=== PATIENT | male | born 1955 | race Caucasian/White ===

== ENCOUNTER 2025-06-07 10:27 | Inpatient (IN) ==
--- NOTE | 2025-04-28 10:49 | PAT Medication Instructions ---
Medication Instructions Date of Service April 28, 2025 Home Medications Medication Instructions Recorded doxycycline hyclate 50 mg capsule 50 mg PO .COMPLEX 90 days #45 caps 07/12/24 atorvastatin 20 mg tablet See Rx Instructions .Route 10/07/24 .COMPLEX #90 tabs doxepin 10 mg capsule See Rx Instructions .Route 12/19/24 .COMPLEX #90 caps losartan 100 mg tablet See Rx Instructions .Route 12/27/24 .COMPLEX #100 tabs cholecalciferol (vitamin D3) 50 mcg (2,000 unit) capsule 50 mcg PO QAM melatonin 5 mg tablet 3 - 10 mg PO HS PRN Sleep omega-3 fatty acids 1,000 mg capsule 1,000 mg PO QAM cyanocobalamin (vitamin B-12) 1,000 mcg tablet (Vitamin B-12) 2,000 mcg PO QAM milk thistle dandilion See Rx Instructions .Route .COMPLEX resveratrol 100 mg capsule 200 mg PO QAM vitamin B complex 1 tab PO DAILY doxycycline hyclate 50 mg capsule 50 mg PO .COMPLEX garlic 1,000 mg capsule 1,000 mg PO DAILY atorvastatin 20 mg tablet See Rx Instructions .Route .COMPLEX tumeric 100 mg PO QAM doxepin 10 mg capsule See Rx Instructions .Route .COMPLEX losartan 100 mg tablet See Rx Instructions .Route .COMPLEX [place] See Rx Instructions .Route .COMPLEX coenzyme Q10 200 mg capsule (Co Q-10) 200 mg PO QAM green tea extract 500 mg capsule 500 mg PO QAM potassium citrate 15 mEq (1,620 mg) tablet,extended release 15 meq PO QAM Continue as directed doxycycline hyclate 50 mg capsule 50 mg PO .COMPLEX STOP taking 2 weeks before surgery (or as soon as possible if surgery is within 2 weeks) omega-3 fatty acids 1,000 mg capsule 1,000 mg PO QAM milk thistle dandilion See Rx Instructions .Route .COMPLEX resveratrol 100 mg capsule 200 mg PO QAM garlic 1,000 mg capsule 1,000 mg PO DAILY tumeric 100 mg PO QAM yellow [place] See Rx Instructions .Route .COMPLEX coenzyme Q10 200 mg capsule (Co Q-10) 200 mg PO QAM green tea extract 500 mg capsule 500 mg PO QAM DO NOT take the morning of surgery cholecalciferol (vitamin D3) 50 mcg (2,000 unit) capsule 50 mcg PO QAM cyanocobalamin (vitamin B-12) 1,000 mcg tablet (Vitamin B-12) 2,000 mcg PO QAM vitamin B complex 1 tab PO DAILY potassium citrate 15 mEq (1,620 mg) tablet,extended release 15 meq PO QAM Take evening before surgery melatonin 5 mg tablet 3 - 10 mg PO HS PRN Sleep (if needed) atorvastatin 20 mg tablet See Rx Instructions .Route .COMPLEX doxepin 10 mg capsule See Rx Instructions .Route .COMPLEX (if needed) losartan 100 mg tablet See Rx Instructions .Route .COMPLEX Other Notes If you have any questions please call us at [phone] or [phone] or [phone] or [phone]
--- NOTE | 2025-05-29 11:35 | Anesthesiology Consultation ---
Date of Service May 29, 2025 Assessment & Plan (1) Encounter for pre-operative examination: - Infectious disease screening: Per assessment on 05/29/25- No known recent infectious disease contacts or current infectious disease symptoms. - [facility] Cardio visit 07/25/24: "Chest pain.. This is rather atypical. Sounds somewhat pleuritic although he denies any recent infections. Given his family history and the abnormal EKG I will have him undergo dobutamine stress echocardiogram. Unfortunately he is not able to walk for very long before he gets debilitating back pain. This also likely prevents him from triggering more anginal type symptoms at home. Further recommendations pending results of his dobutamine stress echocardiogram.. Blood pressure is well-controlled today. He takes only losartan 100 mg daily which we will continue.. Patient has no known atherosclerotic cardiovascular disease and is not diabetic. Therefore he is no more than intermediate risk. Currently taking atorvastatin 20 mg daily and omega-3 fatty acids 1000 mg daily. His lipid panel demonstrates triglycerides of 246 mg/dL, total cholesterol 158 mg/dL, LDL 48 mg/dL and HDL of 61 mg/dL. I assume that this was not a fasting lipid panel therefore the triglycerides are elevated. All his other lipids are at target.. Follow Up: As needed pending results of stress test" > Stress test done 08/29/24; unremarkable findings. To f/u with cardio PRN. - Hx difficult intubation: * 07/10/15- Lithotripsy, cysto, stent exchange: Attempted to intubate with MAC 3&4 without success. Grade view 2 with Glidescope#4, ETT 7.5, [facility] * Pt has had multiple GA/LMA use since that time without noted issue (05/31/24 left ureteroscopy, stent, laser litho LMA#5, atraumatic x1) - Patient request/concern: Pt requesting not to have Versed if possible (no history of reaction; just states that it is his preference not to have) - Acceptable risk for surgery pending surgeon-ordered PCP preop evaluation ([facility], appt 06/02). History Surgery Operation Date: 06/07/25 07:45 Proposed Procedures p L2-L3 and L5-S1 Decompression and Fusion, L3-L5 Hardware Removal - Fawad Sweeney, DO Height/Weight Height: 6 ft Weight: 87.7 kg Allergies Allergy/AdvReac Type Severity Reaction Status Date / Time cat dander Allergy Unknown Sneezing, Verified 05/19/25 14:19 "depends on the cat" No Known Drug Allergies Allergy Unknown Verified 04/27/25 10:19 Medications Home Medications Medication Instructions Recorded Confirmed Last Taken cholecalciferol (vitamin D3) 50 50 mcg PO QAM 06/18/21 04/27/25 06/28/24 mcg (2,000 unit) capsule melatonin 5 mg tablet 3 - 10 mg PO HS PRN Sleep 10/30/21 04/27/25 05/30/24 23:59 omega-3 fatty acids 1,000 mg 1,000 mg PO QAM 03/13/22 04/27/25 06/28/24 capsule cyanocobalamin (vitamin B-12) 2,000 mcg PO QAM 05/14/22 04/27/25 06/28/24 1,000 mcg tablet (Vitamin B-12) milk thistle dandilion See Rx Instructions .Route .COMPLEX 05/16/24 04/27/25 06/28/24 resveratrol 100 mg capsule 200 mg PO QAM 05/16/24 04/27/25 07/04/24 vitamin B complex 1 tab PO DAILY 05/16/24 04/27/25 06/28/24 doxycycline hyclate 50 mg capsule 50 mg PO .COMPLEX 90 days #45 caps 07/12/24 04/27/25 Unknown garlic 1,000 mg capsule 1,000 mg PO DAILY 09/16/24 04/27/25 Unknown atorvastatin 20 mg tablet See Rx Instructions .Route 10/07/24 04/27/25 Unknown .COMPLEX #90 tabs tumeric 100 mg PO QAM 11/11/24 04/27/25 Unknown doxepin 10 mg capsule See Rx Instructions .Route 12/19/24 04/27/25 Unknown .COMPLEX #90 caps losartan 100 mg tablet See Rx Instructions .Route 12/27/24 04/27/25 Unknown .COMPLEX #100 tabs yellow dock See Rx Instructions .Route .COMPLEX 04/05/25 04/27/25 Unknown coenzyme Q10 200 mg capsule (Co 200 mg PO QAM 04/27/25 04/27/25 Unknown Q-10) green tea extract 500 mg capsule 500 mg PO QAM 04/27/25 04/27/25 Unknown potassium citrate 15 mEq (1,620 15 meq PO QAM 04/27/25 04/27/25 Unknown mg) tablet,extended release Past Medical History Medical History Abnormal EKG Incidental 07/25/24 EKG finding of "Inferior infarct, cited on or before 2013" Unremarkable stress echo done 08/2024 Acne Reason for doxycycline Arthralgia BPH (benign prostatic hyperplasia) with LUTS; s/p urolift and TURP DDD (degenerative disc disease), lumbar History of colon polyps History of COVID-19 Hyperlipidemia Hypertension Kidney stone Hx, s/p multiple lithotripsy procedures Scoliosis deformity of spine (08/02/13) Skin cancer BCC, SCC, melanoma s/p excision Sleep trouble Uses sleep aids Exercise / Class Metabolic Activity II 4-5 Yardwork/Stairs/Walk up hill (one FS: No CP, no SOB) Past Family History Family History Father Family hx of colon cancer Heart disease Uncle Family hx of colon cancer Mother Heart disease Other Family history of heart disease Past Surgical History Surgical History Difficult intubation 07/10/15- Lithotripsy, cysto, stent exchange: Attempted to intubate with MAC 3&4 without success. Grade view 2 with Glidescope#4, ETT 7.5, [facility] Pt has had multiple GA/LMA use since that time without noted issue (05/31/24 left ureteroscopy, stent, laser litho LMA#5, atraumatic x1) Fusion of spine L3-L5 fusion History of anesthesia reaction Pt requesting not to have Versed (no history of reaction; just states that it is his preference not to have) History of cataract surgery b/l History of lithotripsy multiple, most recent 05/31/24, [facility] History of lymph node excision Left axillary (Age 20s) Hx of colonoscopy (06/2024) Hx of cystoscopy S/P TURP 06/19/23: GA: LMA#5 x 1 atraumatic, good seal Past Anesthesia History Difficult Airway (07/10/15- Lithotripsy, cysto, stent exchange: Attempted to intubate with MAC 3&4 without success. Grade view 2 with Glidescope#4, ETT 7.5, [facility] Pt has had multiple GA/LMA use since that time without noted issue (05/31/24 left ureteroscopy, stent, laser litho LMA#5 x atraumatic x1)) History of PONV No Hx of PONV Social History Smoking Status: Former smoker tobacco type: cigarettes Do You Dip or Chew Tobacco: No Smoking End Date: Very mild use, age 20s Hx Alcohol Use: Yes Alcohol type: beer and hard liquor alcohol intake frequency: 0-2 drinks per day (2 drinks/day) Hx Substance Use: No substance use type: does not use Review of Systems Patient denies chest pain, shortness of breath, dyspnea on exertion, fever, chills, cough, wheezing. Physical Exam Physical Full cervical extension range of motion. Full TMJ range of motion. TMD > 3.5 finger breaths Mallampati Score II Dentition: intact, + crowns Lungs: clear throughout to auscultation Cardiac: regular rate and rhythm, no murmurs noted Spine: normal Carotid arteries: negative bruit Extremities: no LE edema Lab Results Anesthesia Preop Results Results Anesthesia Widget: WBC 8.1 Thousand/uL (3.8-10.8) 05/05/25 Hgb 14.6 g/dL (13.2-17.1) 05/05/25 Hct 45.0 % (38.5-50.0) 05/05/25 Plt 176 Thousand/uL (140-400) 05/05/25 Na 143 mmol/L (135-146) 05/05/25 K 4.7 mmol/L (3.5-5.3) 05/05/25 Cl 108 mmol/L (98-110) 05/05/25 CO2 21 mmol/L (20-32) 05/05/25 BUN 16 mg/dL (7-25) 05/05/25 Creat 1.01 mg/dL (0.70-1.28) 05/05/25 Glucose Level 95 mg/dL (65-99) 05/05/25 PT 10.5 Seconds (9.0-12.0) 05/29/25 PTT 23 Seconds (21-31) 05/29/25 INR 1.0 (0.9-1.1) 05/29/25 TSH 3.15 mIU/L (0.40-4.50) 05/05/25 Urine Color DARK YELLOW (YELLOW) 05/05/25 Urine Appearance CLEAR (CLEAR) 05/05/25 Urine pH 6.5 (5.0-8.0) 05/05/25 Urine Specific [place] 1.020 (1.001-1.035) 05/05/25 Urine Protein NEGATIVE (NEGATIVE) 05/05/25 Urine Glucose (UA) NEGATIVE (NEGATIVE) 05/05/25 Urine Ketones NEGATIVE (NEGATIVE) 05/05/25 Urine Blood NEGATIVE (NEGATIVE) 05/05/25 Urine Nitrite NEGATIVE (NEGATIVE) 05/05/25 Urine Bilirubin NEGATIVE (NEGATIVE) 05/05/25 Urine Leukocyte Esterase NEGATIVE (NEGATIVE) 05/05/25 Urine WBC (Auto) NONE SEEN /HPF (< OR = 5) 05/05/25 Urine RBC (Auto) NONE SEEN /HPF (< OR = 2) 05/05/25 Urine Hyaline Casts (Auto) NONE SEEN /LPF (NONE SEEN) 05/05 Urine Epithelial Cells (Auto) NONE SEEN /HPF (< OR = 5) 01/20 Urine Bacteria (Auto) NONE SEEN /HPF (NONE SEEN) 05/05/25 Blood Type O Positive 05/29/25 Antibody Screen NEGATIVE 05/29/25 Testing Electrocardiogram Date: 07/25/24 NSR at 74bpm. Possible LAE. LAD. Inferior infarct (cited on or before 07/27/2013 per medical asst comparison). Chest X-Ray Date: 05/29/25 FINDINGS: The cardiomediastinal contours remain stable. There is no failure. There is no focal pulmonary consolidation. There are no pleural effusions. Postsurgical changes are noted within the lumbar spine. IMPRESSION: No active disease in the chest. Stress Test Date: 08/29/24 Negative DSE/stress ECG for myocardial ischemia 90% MPHR. "This is considered a low risk dobutamine stress echo for stress-induced myocardial ischemia. " No significant valvular pathology. Rest echo with normal systolic function EF 60%.
[~2025-06-07 10:27] MED LIST: DEXAMETHASONE SOD INJ 4 MG/ML VIAL ONE; GLYCOPYRROLATE 0.2 MG/ML VIAL ONE; KETAMINE HCL 10MG/ML SYR ONE; LIDOCAINE 2% 2 ML VIAL/AMP(20MG/ML) INFIL ONE; ONDANSETRON INJ 2 MG/ML 2 ML VIAL ONE; PROPOFOL IV EMULSION 10 MG/ML 20 ML VIAL IV ONE; ROCURONIUM BROMIDE 10 MG/ML 5 ML VIAL IV ONE; SUGAMMADEX SODIUM 200 MG/2 ML VIAL IV ONE
[2025-06-07] MEDS: LR 60ML/HR IV SCH (11:10)
[2025-06-07] MEDS: LR 15ML/HR IV SCH (11:10)
[2025-06-07] MEDS: ACETAMINOPHEN 500 MG TAB PO SCH (11:10)
[2025-06-07] MEDS: GABAPENTIN 300 MG CAP PO SCH (11:11)
[2025-06-07] MEDS: CeleBREX 200 MG CAP PO SCH (11:11)
[2025-06-07] MEDS ORDERED: ATROPINE SULFATE 0.1 MG/ML 10ML SYR IV PRN (12:13)
[2025-06-07] MEDS ORDERED: ONDANSETRON INJ 2 MG/ML 2 ML VIAL IV PRN ×2 (12:13→17:31)
--- NOTE | 2025-06-07 12:37 | History & Physical Bridge Note ---
Date of Service June 07, 2025 History & Physical Bridge Note I have examined the patient, reviewed the History & Physical and in the interval since the performance of the History & Physical I have noted the following changes of clinical significance: no changes noted
--- NOTE | 2025-06-07 12:38 | History & Physical Report ---
Date of Service June 07, 2025 Assessment & Plan (1) Lumbosacral spondylosis with radiculopathy: Plan: L2-L3 and L5-S1 decompression fusion, hardware removal L3-L5 History of Present Illness Chief Complaint: Back and leg pain Primary Care Provider: Leonardo Thomson MD This is a 69-year-old male presents with chronic persistent back and leg pain and course of nonoperative care is here for surgical invention. Allergies Allergy/AdvReac Type Severity Reaction Status Date / Time cat dander Allergy Unknown Sneezing, Verified 06/07/25 10:27 "depends on the cat" No Known Drug Allergies Allergy Unknown Verified 06/07/25 10:27 Home Medications Medication Instructions Recorded Confirmed Type cholecalciferol (vitamin D3) 50 50 mcg PO QAM 06/18/21 06/07/25 History mcg (2,000 unit) capsule melatonin 5 mg tablet 3 - 10 mg PO HS PRN Sleep 10/30/21 06/07/25 History omega-3 fatty acids 1,000 mg 1,000 mg PO QAM 03/13/22 06/07/25 History capsule cyanocobalamin (vitamin B-12) 2,000 mcg PO QAM 05/14/22 06/07/25 History 1,000 mcg tablet (Vitamin B-12) milk thistle dandilion See Rx Instructions .Route .COMPLEX 05/16/24 06/07/25 History resveratrol 100 mg capsule 200 mg PO QAM 05/16/24 06/07/25 History vitamin B complex 1 tab PO DAILY 05/16/24 06/07/25 History garlic 1,000 mg capsule 1,000 mg PO DAILY 09/16/24 06/07/25 History atorvastatin 20 mg tablet See Rx Instructions .Route 10/07/24 06/07/25 Rx .COMPLEX #90 tabs tumeric 100 mg PO QAM 11/11/24 06/07/25 History doxepin 10 mg capsule See Rx Instructions .Route 12/19/24 06/07/25 Rx .COMPLEX #90 caps losartan 100 mg tablet See Rx Instructions .Route 12/27/24 06/07/25 Rx .COMPLEX #100 tabs yellow dock See Rx Instructions .Route .COMPLEX 04/05/25 06/07/25 History coenzyme Q10 200 mg capsule (Co 200 mg PO QAM 04/27/25 06/07/25 History Q-10) green tea extract 500 mg capsule 500 mg PO QAM 04/27/25 06/07/25 History potassium citrate 15 mEq (1,620 15 meq PO QAM 04/27/25 06/07/25 History mg) tablet,extended release doxycycline hyclate 50 mg capsule 50 mg PO .COMPLEX 90 days #45 caps 05/30/25 06/07/25 Rx Past Med/Surg History Problem List (Updated 06/07/25 @ 12:37 by Fawad Sweeney DO) Lumbosacral spondylosis with radiculopathy Axillary mass Lumbar radicular pain Postlaminectomy syndrome of lumbosacral region Lumbar facet joint syndrome Hypoglobulinemia Lumbar disc disease Bilateral nephrolithiasis Arthralgia Family history of colon cancer Encounter for pre-operative examination Hypertension Testicular hypofunction (Chronic) Organic impotence (Chronic) Internal hemorrhoids (Acute) Elevated prostate specific antigen (PSA) (Acute) Benign prostatic hyperplasia with urinary obstruction (Chronic) Hyperlipidemia (Chronic) Hypocitraturia Vitamin D deficiency Medical History Abnormal EKG Incidental 07/25/24 EKG finding of "Inferior infarct, cited on or before 2013" Unremarkable stress echo done 08/2024 Acne Reason for doxycycline Arthralgia BPH (benign prostatic hyperplasia) with LUTS; s/p urolift and TURP DDD (degenerative disc disease), lumbar History of colon polyps History of COVID-19 Hyperlipidemia Hypertension Kidney stone Hx, s/p multiple lithotripsy procedures Scoliosis deformity of spine (08/02/13) Skin cancer BCC, SCC, melanoma s/p excision Sleep trouble Uses sleep aids Surgical History Difficult intubation 07/10/15- Lithotripsy, cysto, stent exchange: Attempted to intubate with MAC 3&4 without success. Grade view 2 with Glidescope#4, ETT 7.5, [facility] Pt has had multiple GA/LMA use since that time without noted issue (05/31/24 left ureteroscopy, stent, laser litho LMA#5, atraumatic x1) Fusion of spine L3-L5 fusion History of anesthesia reaction Pt requesting not to have Versed (no history of reaction; just states that it is his preference not to have) History of cataract surgery b/l History of lithotripsy multiple, most recent 05/31/24, [facility] History of lymph node excision Left axillary (Age 20s) Hx of colonoscopy (06/2024) Hx of cystoscopy S/P TURP 06/19/23: GA: LMA#5 x 1 atraumatic, good seal Family History Father Family hx of colon cancer Heart disease Uncle Family hx of colon cancer Mother Heart disease Other Family history of heart disease Social History Smoking Status: Former smoker Smoking End Date: Very mild use, age 20s; Second Hand Exposure: No; Do You Dip or Chew Tobacco: No; Tobacco Cessation Education Requested by Patient: No Hx Alcohol Use: Yes Alcohol type: beer and hard liquor Hx Substance Use: No Preferred Language: Kiswahili Communication Ability: Effective Visual Impairment: No Limitations Playground Aide Required: No Beliefs That Will Affect Care: None marital status: Current Living Situation: Spouse How many Children do You have: 3 Other Information That Helps Us Care for You: No Feels Safe at Home: Yes Safety Concerns: Feels Safe At This Time Diet: regular during the past year weight has: remained stable Assistive Devices: None Physical Exam Physical Exam: Patient is alert and oriented Heart regular rhythm Lungs clear Results & Data Results & Data Vital Signs (Past 12 Hours) Vital Signs Temp Pulse Resp BP Pulse Ox O2 Del Method 06/07/25 10:47 36.4 C L 97 H 20 132/94 96 Room Air
[2025-06-07] MEDS: BUPIVACAINE/EPINEPHRINE 0.25% 1:200,000 30 ML VIAL ONE (13:24)
[2025-06-07] MEDS: ceFAZolin 330 MG/ML 1 GM VIAL ONE (13:25)
[2025-06-07] MEDS ORDERED: ROCURONIUM BROMIDE 10 MG/ML 5 ML VIAL IV ONE (14:53)
[2025-06-07] MEDS ORDERED: ePHEDrine sulfate 50 MG/5 ML SYR ONE (14:54)
[2025-06-07] MEDS: FLOSEAL HEMOSTATIC MATRIX 10ML TOP ONE (15:38)
--- NOTE | 2025-06-07 15:40 | Operative Report ---
Post Operative Report Pre & Post Diagnosis Operation Date: 06/07/25 11:45 Pre-Op Diagnosis: #1 lumbosacral Spondylosis with Radiculopathy #2 lumbar spinal stenosis Post-Op Diagnosis: Same I identified the patient and participated in the time-out.: Yes Procedure Operation Date: 06/07/25 11:45 Actual Procedures #1 removal of posterior instrumentation L3-L5. #2 exploration of fusion L3-L5. #3 lumbar decompression bilateral middle facetectomies and foraminotomies L2-L3 L4-5 S1. #4 posterior spinal fusion L2-L3 L5-S1. #5 placement posterior segment instrumentation L2-S1 using Bishop. #6 interbody fusion L2-L3 L5-S1. #7 placement of Spira 11 x 26 mm at L2-L3 and 13 x 26 mm at L5-S1.. #8 placement of Koros combined with Proteus bone graft in the posterolateral gutters and os design in the interbody space. #9 application of versa wrap of the exposed dura. Surgeon Fawad Sweeney, Engine Hostler Richelle Guerrero Estimated Blood Loss 250 Findings Consistent with Post-Op Diagnosis Specimens None Indications This is a 69-year-old male that presents with above-mentioned diagnosis after failing course of nonoperative care is here for surgical intervention. Description of Procedure Patient was met with identified informed consent obtained. Patient was then taken to the operative suite underwent and patient placed in a prone position on the [place] table top Pancho frame. All bony promises well-padded eyes inspected to ensure no external pressure placed monitor at this point the lumbar spine was prepped and draped in normal sterile fashion. Sharp dissection with the assistance of Bovie cautery performed down to and exposing the lamina transverse processes of L2 and the instrumentation at L3-L4-L5 and the facets and sacral ala out of 5 S1. Then proceeded to remove the hardware bilaterally at L3-L4-L5 explored the fusion mass noting it to be mature and intact. I then performed a complete laminectomy of L5 with bilateral medial facetectomies and foraminotomies addressing severe neural compression. This is followed by complete laminectomy L2 with bilateral facetectomies and foraminotomies again addressing severe neural compression. Pedicle screws in place in L2-L3 L5 and S1 levels bilaterally with assistance of fluoroscopy and appropriately sized kathy placed. By way the transforaminal approach on the left complete discectomy of L5-S1 was performed endplates created to subcortical bleeding bone and a 13 x 26 mm Spira cage tapped in position. Then proceeded to the L2-L3 level. By way of transforaminal approach on the right a complete discectomy was performed. Endplates guided to subcortical mean bone and 11 x 26 mm Spira cage tapped in position. Please note all cages were packed with os design bone graft. The transverse processes of L2-L3 L5 and sacral ala burred to subcortical bleeding bone. Koros combined with Proteus bone graft placement posterior lateral gutters. Versa wrap placed over the exposed dura. 15 round CHECO drain inserted. The incision was then closed with 1 Vicryl the fascia 2-0 Vicryl subcutaneously and 4 Monocryl for final skin closure. Steri-Strips and sterile dressing placed. Patient waken taken to PACU in stable condition. Please note Richelle Guerrero was present of the entire procedure and on the patient positioning complex portion of the surgery and final skin closure. I attest to the content of the Intraoperative Record and any orders documented therein. Any exceptions are noted below.
--- NOTE | 2025-06-07 15:55 | Fluoroscopy Report ---
FL lumbar spine 2-3V CLINICAL HISTORY: L2-L3, L5-S1 DECOMPRESSION/FUSION COMPARISON STUDY: MRI lumbar spine 11/27/2024 FLUOROSCOPY TIME: 18.2 seconds FLUOROSCOPY IMAGES: 4 EXPOSURE DOSE: 15.998 mGy FINDINGS: Posterior interbody kathy and screw fusion with discectomy changes noted at 5 levels which ap pears to extend from L2-S1. The visualized hardware appears intact. No unexpected opaque foreign bodi es identified on this study. IMPRESSION: Fluoroscopic assistance as above. ACT 112: Negative or not required by law. Electronically signed by: Marc Marquez M.D. 06/07/2025 3:53 PM
--- NOTE | 2025-06-07 16:11 | Anesthesiology Progress Note ---
Date of Service June 07, 2025 Anesthesia Post Procedure Vital Signs Vital Signs: Temp Pulse Pulse Resp BP Pulse Ox O2 Del Method 06/07/25 16:10 103 H 17 149/81 H 95 Room Air 06/07/25 16:00 106 H 16 149/80 H 98 Oxymask 06/07/25 15:50 36.7 C 109 H 12 136/78 98 Oxymask 06/07/25 10:47 36.4 C L 97 H 20 132/94 96 Room Air O2 Flow Rate 06/07/25 16:10 0 06/07/25 16:00 6 06/07/25 15:50 6 06/07/25 10:47 Pain Intensity Back: Pain Intensity: 8 Transfer of Care Handoff Completed per policy Notes Mental Status: alert / awake / arousable and participated in evaluation Patient Amnestic to Procedure: Yes Nausea / Vomiting: adequately controlled Pain: adequately controlled Airway Patency, RR, SpO2: stable & adequate BP & HR: stable & adequate Hydration State: stable & adequate Anesthetic Complications: no major complications apparent and Pt Satisfied with anesthetic care
[2025-06-07] MEDS: HYDROmorphone INJ 2 MG/ML SYR/VIAL IV PRN (16:20)
[2025-06-07] MEDS: HYDROmorphone INJ 2 MG/ML SYR/VIAL ONE ×2 (16:41→16:45)
[2025-06-07] MEDS ORDERED: ACETAMINOPHEN 500 MG TAB PO PRN (17:31)
[2025-06-07] MEDS ORDERED: SOD PHOSPHATE/SOD BIPHOSPHATE ENEMA 132 ML BTL PR PRN (17:31)
[2025-06-07] MEDS ORDERED: diphenhydrAMINE Capsule 25 MG CAP PO PRN (17:31)
[2025-06-07] MEDS ORDERED: NALOXONE HCL 0.4 MG/1 ML VIAL/CARP IV PRN (17:31)
[2025-06-07] MEDS ORDERED: METOCLOPRAMIDE HCL INJ 5 MG/ML 2 ML VIAL IV PRN (17:31)
[2025-06-07] MEDS ORDERED: FAMOTIDINE 20 MG TAB PO PRN (17:31)
[2025-06-07] MEDS ORDERED: ONDANSETRON 4 MG OD TAB PO PRN (17:31)
[2025-06-07] MEDS ORDERED: LORazepam Inj 0.5 MG in SYRINGE 0.25 ML IV PRN (17:31)
[2025-06-07] MEDS ORDERED: MAGNESIUM HYDROXIDE SUSP 30 ML UDC PO PRN (17:31)
[2025-06-07] MEDS ORDERED: LORazepam 0.5 MG TAB PO PRN (17:31)
[2025-06-07] MEDS ORDERED: DO NOT ADMINISTER PNEUMOCOCCAL VACCINE PRN (17:31)
[2025-06-07] MEDS ORDERED: DO NOT ADMINISTER FLU VACCINE PRN (17:31)
[2025-06-07] MEDS: HYDROmorphone INJ 1 MG/ML SYRINGE IV PRN (17:45)
[2025-06-07] MEDS: SODIUM CHLORIDE 0.9% 1,000 ML IV SCH (18:07)
--- NOTE | 2025-06-07 18:11 | Hospitalist Consultation ---
Date of Consultation June 07, 2025 Assessment & Plan (1) Hyperlipidemia: (2) Hypertension: (3) Lumbosacral spondylosis with radiculopathy: (4) Lumbar radicular pain: (5) Lumbar disc disease: Plan Soy is a 69yo gentleman with PMH of HTN, HLD, lumbosacral spondylosis with radiculopathy who is s/p L2-L3 and L5-S1 decompression fusion, hardware removal L3-L5. #HTN -continue losartan 50mg qhs #HLD -continue atorvastatin 20mg qhs #Insomnia -continue doxepin qhs #Lumbar spondylosis with radiculopathy #Spinal Stenosis #S/p L2-L3 and L5-S1 decompression fusion, hardware removal L3-L5. -pain management as per primary team -rest of management per primary team DVT prophylaxis: SCDs Supervising Physician Co-Signing Physician Notes I personally examined the patient and verified carlson points of history and exam, discussed case, and agree with decision making and plan documented by Dr. Joshua. History of Present Illness Reason for Consultation: Medical Management Attending Physician: Fawad Sweeney, DO History of Present Illness Soy is a 69yo gentleman with PMH of HTN, HLD, lumbosacral spondylosis with radiculopathy who is s/p L2-L3 and L5-S1 decompression fusion, hardware removal L3-L5. Hospitalist team was consulted for medical management. Pt was seen at bedside with his Tatum. He states he is experiencing pain, however, was receiving pain medication dose at time of visit. Reviewed PMH and medications with pt and . Denies CP, SOB, abdominal pain. Allergies Allergy/AdvReac Type Severity Reaction Status Date / Time cat dander Allergy Unknown Sneezing, Verified 06/07/25 10: "depends on the cat" No Known Drug Allergies Allergy Unknown Verified 06/07/25 10:27 Home Medications Medication Instructions Recorded Confirmed Type cholecalciferol (vitamin D3) 50 50 mcg PO QAM 06/18/21 06/07/25 History mcg (2,000 unit) capsule melatonin 5 mg tablet 3 - 10 mg PO HS PRN Sleep 10/30/21 06/07/25 History omega-3 fatty acids 1,000 mg 1,000 mg PO QAM 03/13/22 06/07/25 History capsule cyanocobalamin (vitamin B-12) 2,000 mcg PO QAM 05/14/22 06/07/25 History 1,000 mcg tablet (Vitamin B-12) milk thistle dandilion See Rx Instructions .Route .COMPLEX 05/16/24 06/07/25 History resveratrol 100 mg capsule 200 mg PO QAM 05/16/24 06/07/25 History vitamin B complex 1 tab PO DAILY 05/16/24 06/07/25 History garlic 1,000 mg capsule 1,000 mg PO DAILY 09/16/24 06/07/25 History atorvastatin 20 mg tablet See Rx Instructions .Route 10/07/24 06/07/25 Rx .COMPLEX #90 tabs tumeric 100 mg PO QAM 11/11/24 06/07/25 History doxepin 10 mg capsule See Rx Instructions .Route 12/19/24 06/07/25 Rx .COMPLEX #90 caps losartan 100 mg tablet See Rx Instructions .Route 12/27/24 06/07/25 Rx .COMPLEX #100 tabs yellow dock See Rx Instructions .Route .COMPLEX 04/05/25 06/07/25 History coenzyme Q10 200 mg capsule (Co 200 mg PO QAM 04/27/25 06/07/25 History Q-10) green tea extract 500 mg capsule 500 mg PO QAM 04/27/25 06/07/25 History potassium citrate 15 mEq (1,620 15 meq PO QAM 04/27/25 06/07/25 History mg) tablet,extended release doxycycline hyclate 50 mg capsule 50 mg PO .COMPLEX 90 days #45 caps 05/30/25 06/07/25 Rx Patient History Medical History Abnormal EKG Incidental 07/25/24 EKG finding of "Inferior infarct, cited on or before 2013" Unremarkable stress echo done 08/2024 Acne Reason for doxycycline Arthralgia BPH (benign prostatic hyperplasia) with LUTS; s/p urolift and TURP DDD (degenerative disc disease), lumbar History of colon polyps History of COVID-19 Hyperlipidemia Hypertension Kidney stone Hx, s/p multiple lithotripsy procedures Scoliosis deformity of spine (08/02/13) Skin cancer BCC, SCC, melanoma s/p excision Sleep trouble Uses sleep aids Surgical History Difficult intubation 07/10/15- Lithotripsy, cysto, stent exchange: Attempted to intubate with MAC 3&4 without success. Grade view 2 with Glidescope#4, ETT 7.5, [facility] Pt has had multiple GA/LMA use since that time without noted issue (05/31/24 left ureteroscopy, stent, laser litho LMA#5, atraumatic x1) Fusion of spine L3-L5 fusion History of anesthesia reaction Pt requesting not to have Versed (no history of reaction; just states that it is his preference not to have) History of cataract surgery b/l History of lithotripsy multiple, most recent 05/31/24, [facility] History of lymph node excision Left axillary (Age 20s) Hx of colonoscopy (06/2024) Hx of cystoscopy S/P TURP 06/19/23: GA: LMA#5 x 1 atraumatic, good seal Family History Father Family hx of colon cancer Heart disease Uncle Family hx of colon cancer Mother Heart disease Other Family history of heart disease Social History Smoking Status: Former smoker Smoking End Date: Very mild use, age 20s; Second Hand Exposure: No; Do You Dip or Chew Tobacco: No; Tobacco Cessation Education Requested by Patient: No Hx Alcohol Use: Yes Alcohol type: beer and hard liquor Hx Substance Use: No Preferred Language: Polish Communication Ability: Effective Visual Impairment: No Limitations Tennis Centre Manager Required: No Beliefs That Will Affect Care: None marital status: Current Living Situation: Spouse How many Children do You have: 3 Other Information That Helps Us Care for You: No Feels Safe at Home: Yes Safety Concerns: Feels Safe At This Time Diet: regular during the past year weight has: remained stable Assistive Devices: None Review of Systems Review of Systems: per HPI Physical Exam Physical Exam: GA: well groomed, well nourished, appears drowsy. AAOx3 HEENT: head normocephalic, atraumatic. EOMI RESP: vesicular breath sounds b/l. No wheezes, rhonchi, or rales CARDIOVASCULAR: S1 and S2 heard. No murmurs, rubs, or gallops. Radial pulses 2+ b/l RRR GI: Normoactive bowel sounds, no tenderness or masses felt to palpation MSK: no gross abnormalities or focal deficits SKIN: warm, dry, no edema PSYCH: appropriate mood and affect NEURO: no focal deficits. speech fluent Results & Data Results & Data Vital Signs (Past 12 Hours) Vital Signs Temp Pulse Pulse Resp BP Pulse Ox O2 Del Method 06/07/25 17:15 36.3 C L 88 18 124/74 98 Nasal Cannula 06/07/25 17:00 36.7 C 98 H 18 131/66 98 Nasal Cannula 06/07/25 16:50 97 H 17 138/71 98 Nasal Cannula 06/07/25 16:40 97 H 24 147/76 H 97 Nasal Cannula 06/07/25 16:30 98 H 21 149/76 H 98 Nasal Cannula 06/07/25 16:20 105 H 20 138/81 95 Room Air 06/07/25 16:10 103 H 17 149/81 H 95 Room Air 06/07/25 16:00 106 H 16 149/80 H 98 Oxymask 06/07/25 15:50 36.7 C 109 H 12 136/78 98 Oxymask 06/07/25 10:47 36.4 C L 97 H 20 132/94 96 Room Air O2 Flow Rate 06/07/25 17:15 4 06/07/25 17:00 4 06/07/25 16:50 2 06/07/25 16:40 2 06/07/25 16:30 2 06/07/25 16:20 0 06/07/25 16:10 0 06/07/25 16:00 6 06/07/25 15:50 6 06/07/25 10:47 Resident Activity Tracking Resident Involvement: Resident Care Provided Care Provided: Adult Hospital Medicine
[2025-06-07] MEDS: DOCUSATE SODIUM/SENNA 50/8.6MG TAB PO SCH (20:53)
[2025-06-07] MEDS: ATORVASTATIN 20 MG TAB PO SCH (20:54)
[2025-06-07] MEDS: LOSARTAN POTASSIUM 50 MG TAB PO SCH (20:54)
[2025-06-07] MEDS ORDERED: DOXEPIN HCL 10 MG CAPSULE PO PRN (21:00)
[2025-06-07] MEDS: PROMETHAZINE 12.5 MG/50.5 ML BAG IV PRN (21:14)
[2025-06-07] MEDS: ACETAMINOPHEN 1,000 MG/100 ML VIAL IV PRN (22:14)
[2025-06-08] MEDS: POLYETHYLENE (MIRALAX) 17 GM PACK PO SCH (05:35)
[2025-06-08 07:31] LABS: Hematocrit (blood only) 34.4 % (42.0-52.0); Hemoglobin 11.5 g/dL (14.0-18.0); Immature Granulocytes # (auto) 0.09 K/uL (0.01-0.20); Immature Granulocytes % (auto) 0.5 %; Mean Corpuscular Hemoglobin 30.7 pg (25.0-34.0); Mean Corpuscular Volume 91.7 fL (80.0-100.0); Platelet Count 138 K/uL (130-400); RDW Standard Deviation 44.5 fL (36.4-46.3); Red Blood Count 3.75 M/uL (4.70-6.10); White Blood Count 16.90 K/ul (4.8-10.8)
[2025-06-08 08:21] LABS: Anion Gap 12.0 (3-11); Blood Urea Nitrogen 18.0 mg/dl (6-23); Calcium 7.9 mg/dl (8.6-10.3); Carbon Dioxide 24.0 mmol/L (21-32); Chloride 104.0 mmol/L (98-107); Creatinine Clr Calc Pharmacy 58.5 ml/min; Glucose 195.0 mg/dl (70-99(Fasting)); Potassium 4.0 mmol/L (3.5-5.1); Sodium 140.0 mmol/L (136-145)
[2025-06-08] MEDS: CHOLECALCIFEROL 25 MCG (1000 UNITS) TAB PO SCH (08:56)
[2025-06-08] MEDS: CYANOCOBALAMIN (B-12) 500 MCG TABLET PO SCH (08:57)
[2025-06-08] MEDS: VITAMIN B COMPLEX TAB PO SCH (08:57)
[2025-06-08] MEDS: POTASSIUM CITRATE 10 MEQ TAB PO SCH (08:57)
[2025-06-08] MEDS: dexAMETHasone 6 MG in SYRINGE 0 ML IV SCH (08:57)
--- NOTE | 2025-06-08 09:39 | Hospitalist Progress Note ---
Date of Service June 08, 2025 Assessment & Plan (1) Hyperlipidemia: (2) Hypertension: (3) Lumbosacral spondylosis with radiculopathy: (4) Lumbar radicular pain: (5) Lumbar disc disease: Plan Soy is a 69yo gentleman with PMH of HTN, HLD, lumbosacral spondylosis with radic ulopathy who is s/p L2-L3 and L5-S1 decompression fusion, hardware removal L3- L5. #HTN -continue losartan 50mg qhs #HLD -continue atorvastatin 20mg qhs #Insomnia -continue doxepin qhs #Lumbar spondylosis with radiculopathy #Spinal Stenosis #S/p L2-L3 and L5-S1 decompression fusion, hardware removal L3-L5. -pain management as per primary team -rest of management per primary team DVT prophylaxis: SCDs Admission and Anticipated Discharge Date Admission Date: June 07, 2025 Supervising Physician Co-Signing Physician Notes I personally examined the patient and verified carlson points of history and exam, discussed case, and agree with decision making and plan documented by Dr. Joshua. Subjective No overnight events. Today at bedside, Soy reports his pain has improved. Rates his pain 2/10. Tolerating diet well without nausea or vomiting. Denies fever, chills, CP, SOB, palpitations, or abdominal pain. Review of Systems Review of Systems: per HPI Physical Exam Physical Exam: GA: well groomed, well nourished, appears drowsy. AAOx3 HEENT: head normocephalic, atraumatic. EOMI RESP: vesicular breath sounds b/l. No wheezes, rhonchi, or rales CARDIOVASCULAR: S1 and S2 heard. No murmurs, rubs, or gallops. Radial pulse 2+ RRR GI: Normoactive bowel sounds, no tenderness or masses felt to palpation MSK: no gross abnormalities or focal deficits, drain in place--serosanginous fluid. SKIN: warm, dry, no edema PSYCH: appropriate mood and affect NEURO: no focal deficits. speech fluent : cath in place, yellow urine Results & Data Results & Data Vital Signs (Past 12 Hours) Vital Signs Temp Pulse Pulse Resp BP Pulse Ox O2 Del Method 06/08/25 07:15 36.7 C 108 H 16 108/62 97 Room Air 06/08/25 06:29 36.5 C 93 H 16 112/65 97 Room Air 06/08/25 02:54 36.6 C 99 H 18 124/72 97 Room Air 06/07/25 22:24 36.8 C 88 18 136/77 97 Room Air Resident Activity Tracking Resident Involvement: Resident Care Provided Care Provided: Adult Hospital Medicine
--- NOTE | 2025-06-08 10:07 | Orthopedic Progress Note ---
Date of Service June 08, 2025 Assessment & Plan (1) Lumbosacral spondylosis with radiculopathy: Plan: At this time we will continue physical therapy monitor his CHECO operatively discharge home in the next few days. Admission and Anticipated Discharge Date Admission Date: June 07, 2025 Subjective Patient's back pain is controlled leg symptoms improved Physical Exam Physical Exam: Patient is sitting in the chair at bedside. He is comfortable. He is active testing. Results & Data Vital Signs (Past 12 Hours) Vital Signs Temp Pulse Pulse Resp BP Pulse Ox O2 Del Method 06/08/25 07:15 36.7 C 108 H 16 108/62 97 Room Air 06/08/25 06:29 36.5 C 93 H 16 112/65 97 Room Air 06/08/25 02:54 36.6 C 99 H 18 124/72 97 Room Air 06/07/25 22:24 36.8 C 88 18 136/77 97 Room Air
[2025-06-08] MEDS: HYDROmorphone INJ 0.5 MG/0.5 ML SYR IV PRN (13:02)
[2025-06-08] MEDS: ALUMINUM/MAGNESIUM SUSP 30 ML UDC PO PRN (14:55)
--- NOTE | 2025-06-09 06:46 | Hospitalist Progress Note ---
Date of Service June 09, 2025 Assessment & Plan (1) Hyperlipidemia: (2) Hypertension: (3) Lumbosacral spondylosis with radiculopathy: (4) Lumbar radicular pain: (5) Lumbar disc disease: Plan Soy is a 69yo gentleman with PMH of HTN, HLD, lumbosacral spondylosis with radic ulopathy who is s/p L2-L3 and L5-S1 decompression fusion, hardware removal L3- L5. #Anemia likely secondary to post-op Hb 15-->11.5-->10.6 -pt asx -stable blood counts #HTN -continue losartan 50mg qhs #HLD -continue atorvastatin 20mg qhs #Insomnia -continue doxepin qhs #Lumbar spondylosis with radiculopathy #Spinal Stenosis #S/p L2-L3 and L5-S1 decompression fusion, hardware removal L3-L5. -pain management as per primary team -rest of management per primary team DVT prophylaxis: SCDs Hospitalist team will sign off at this time. Please reconsult us as needed. Consider reconsult for sustained BPs >150/90. Thank you for allowing us to care for this patient. Admission and Anticipated Discharge Date Admission Date: June 07, 2025 Supervising Physician Co-Signing Physician Notes Attending attestation Pt seen and examined in concert with Dr. Joshua. In agreement with the documented findings as noted in the resident documentation with any exceptions or additions as noted here. Resting comfortably without acute complaint at time of examination. VS as noted. On examination, S1/S2 nl RRR no MCG. CTAB. Abd NT/ND BS+ve Soy is a 69yo gentleman with PMH of HTN, HLD, lumbosacral spondylosis with radiculopathy who is s/p L2-L3 and L5-S1 decompression fusion, hardware removal L3-L5. Anemia in the setting of recent surgery - trend CBC in AM HTN - adequately controlled on present regimen without adverse effect Else see resident documentation as noted. As noted above, we will s/o but please contact if needed. Subjective No overnight events. Pain well controlled. Pt tolerates diet well without N/V. Passing gas, no BM yet. Denies fever, chills, SOB, CP, abdominal pain, complaints, or leg edema. Review of Systems Review of Systems: per HPI Physical Exam Physical Exam: GA: well groomed, well nourished, appears drowsy. AAOx3 HEENT: head normocephalic, atraumatic. EOMI RESP: vesicular breath sounds b/l. No wheezes, rhonchi, or rales CARDIOVASCULAR: S1 and S2 heard. No murmurs, rubs, or gallops. Radial pulse 2+ RRR GI: Normoactive bowel sounds, no tenderness or masses felt to palpation MSK: no gross abnormalities or focal deficits, drain in place--serosanginous fluid. SKIN: warm, dry, no edema PSYCH: appropriate mood and affect NEURO: no focal deficits. speech fluent : cath in place, yellow urine Results & Data Results & Data Vital Signs (Past 12 Hours) Vital Signs Temp Pulse Resp BP Pulse Ox O2 Del Method 06/08/25 23:37 37.0 C 101 H 18 108/65 97 Room Air 06/08/25 20:47 115/62 Resident Activity Tracking Resident Involvement: Resident Care Provided Care Provided: Adult Hospital Medicine
[2025-06-09 10:41] LABS: Hematocrit (blood only) 31.4 % (42.0-52.0); Hemoglobin 10.6 g/dL (14.0-18.0); Immature Granulocytes # (auto) 0.08 K/uL (0.01-0.20); Immature Granulocytes % (auto) 0.5 %; Mean Corpuscular Hemoglobin 31.2 pg (25.0-34.0); Mean Corpuscular Volume 92.4 fL (80.0-100.0); Platelet Count 114 K/uL (130-400); RDW Standard Deviation 45.0 fL (36.4-46.3); Red Blood Count 3.40 M/uL (4.70-6.10); White Blood Count 15.48 K/ul (4.8-10.8)
[2025-06-09 10:53] LABS: Anion Gap 7.0 (3-11); Blood Urea Nitrogen 17.0 mg/dl (6-23); Calcium 8.2 mg/dl (8.6-10.3); Carbon Dioxide 28.0 mmol/L (21-32); Chloride 104.0 mmol/L (98-107); Creatinine Clr Calc Pharmacy 71.9 ml/min; Potassium 4.5 mmol/L (3.5-5.1); Sodium 139.0 mmol/L (136-145)
[2025-06-09 20:50] VITALS: O2SAT 98
[2025-06-10 07:40] VITALS: BP 122/70; PULSE 76; RESP 16; TEMP 97.9
--- NOTE | 2025-06-10 10:02 | Discharge Summary ---
Date of Service June 10, 2025 Admission HPI Per Admitting Provider This is a 69-year-old male presents with chronic persistent back and leg pain and course of nonoperative care is here for surgical invention. Principal Diagnosis Lumbar spondylosis with radiculopathy Discharge Data Allergies Allergy/AdvReac Type Severity Reaction Status Date / Time cat dander Allergy Unknown Sneezing, Verified 06/07/25 10:27 "depends on the cat" No Known Drug Allergies Allergy Unknown Verified 06/07/25 10:27 Consultations 06/07/25 17:31 Consult Hospitalist Routine Procedures Performed Operation Date: 06/07/25 11:45 Actual Procedures p L2-L3 and L5-S1 Decompression and Fusion, L3-L5 Hardware Removal (Not Applicable) - Fawad Sweeney DO Ordered Studies 06/07/25 11:45 FL lumbar spine 2-3V Routine Hospital Course (1) Lumbosacral spondylosis with radiculopathy: Patient underwent lumbar decompression and fusion tolerated this well was taken to orthopedic for postoperative. Postop he progressed appropriately. CHECO drain decreasing. Pain well-controlled. Extra strength testing. Subsequently discharged home. Discharge orders and instructions from the chart for further review. Total Time Total Time Spent Total Time Spent (In Minutes): 20 minutes Discharge Plan Discharge Items Patient Disposition: Home - Self-Care Reason For Visit: Lumbosacral Spondylosis with Radiculopathy Discharge Diagnosis: Lumbar spondylosis with radiculopathy Activity: As commented below Non-emergency contact: Primary Care Provider Call non-emergency contact if: you have any medication questions Follow-up/Referrals: Leonardo Thomson MD [Primary Care Provider] - Diet: Regular Addtl Attending Provider Instructions: ACTIVITY RECOMMENDATIONS: SELF CARE INSTRUCTIONS AFTER THORACIC/LUMBAR FUSIONS 1. You may walk to your tolerance. It is good exercise for your legs and back. Expect some back and intermittent leg aches and pains. 2. You may perform "counter-top" level activities (make a sandwich, vince with a project, etc.). 3. No bending or lifting of more than 10 pounds or back twisting of any nature (roll like a log when turning in bed). 4. You may ride in a car for 20-30 minutes at a time. No driving until after your first visit with your doctor. 5. Frequent changes of position and restricting sitting to 30 minutes at a time will help limit the amount of back spasms and stiffness you may experience. 6. You may discontinue the use of ambulatory aids (cane, crutches, etc.) once your strength and confidence allow. 7. You may filler shredder machine the shower and let water strike your incision when you arrive home at least once daily. Do not take a tub bath, sit in a hot tub or go into a swimming pool until after your first recheck in the office. 8. You may resume previous diet. SPECIAL CARE INSTRUCTIONS: VERY IMPORTANT TO READ AND REVIEW A. Your surgical incision has been closed with a cosmetic suture under the skin that will dissolve in about 6 weeks. In 14 days, you can use a pair of clean scissors and cut the suture that is left outside of the skin at the ends of your incision. 1. The small skin tapes can be removed 7 days after surgery if they have not fallen off by that point. 2. You may keep the wound open to air as much as possible to promote healing after post-op day number 5 unless told otherwise by your doctor. 3. If you think the wound looks like it is becoming infected (redness or worsening drainage) and/or you are experiencing fever, chill or worsening back pain and muscle spasms, contact the office so that we may evaluate you as soon as possible. B. Complications are uncommon, but please contact us if you have any signs or symptoms of: 1. wound infection (fever higher than 102.5 degrees F, redness, separation of wound, drainage, or increasing pain from the incision) 2. blood clots in legs (pain, swelling, redness and warmth in legs) 3. urinary tract infection (fever higher than 102.5 degrees F, burning upon urination or increased frequency of urination) 4. nerve problems (inability to walk on your toes or heels, numbness, loss of bowel or bladder control) 5. any other symptoms that concern you C. Please call the office at if you have any concerns or questions about your operation or recovery. D. No smoking! Smoking drastically decreases the chance of a solid fusion. E. Do not take any anti-inflammatory medications (Indocin, Advil, Motrin, Aspirin, Naprosyn, etc.) as these may inhibit the chance of a solid fusion. Tyl enol is okay to take for pain. MANAGING PAIN AFTER SPINAL SURGERY 1. Narcotic medication is intended for short-term use and will be provided for surgical pain. Surgical pain usually lasts for a period of 4-6 weeks. Narcotic medication includes Percocet, Vicodin, Darvocet, Tylenol #3 or Lortab. 2. Longer-term pain is more appropriately treated with non-narcotic medication such as Tylenol ES. 3. Muscle spasm is not appropriately treated with narcotics. Muscle relaxers such as Soma, Flexeril or Skelaxin can be used along with Tylenol ES. 4. Remember that we all live with some "aches and pains". This is not unusual or uncommon after an injury or as we get older. a. Back pain is expected and may include muscle spasms for 4 to 6 weeks after surgery. The pain should gradually improve. If the pain worsens for no apparent reason, please contact the office. b. Intermittent leg pain may also be experienced and should not be concerned about unless it worsens for no apparent reason. If so, please contact the office. 5. We will provide appropriate medication within the normal guidelines of their prescribed use. We will also be very cautious and aware of potential abuse and extended duration of patients' medication needs. a. Pain medications are for your comfort and to assist with sleep and rest so that the tissue can heal. They are not provided in order to return to normal activity and should not be used through the day. To do so or worsening pain at night can result from ongoing tissue damage and development of tolerance to the prescribed medicine. 6. Please allow 2-3 days to process refills. Prescriptions will not be mailed but must be picked up at the office. FOLLOW UP VISIT: Keep your scheduled follow-up appointment. Any questions, please call the office at . Pending Studies at Discharge: No Stand-Alone Forms: My MetaNotes, Smoking Cessation Medications and MS Order Prescriptions: New hydromorphone [Dilaudid] 2 mg tablet 2 mg PO Q6H PRN (Reason: pain) Qty: 30 0RF Continued garlic 1,000 mg capsule 1,000 mg PO DAILY atorvastatin 20 mg tablet See Rx Instructions .ROUTE .COMPLEX Qty: 90 3RF Dose Instruction: TAKE 1 TABLET DAILY IN THE EVENING Rx Instructions: TAKE 1 TABLET DAILY IN THE EVENING doxepin 10 mg capsule See Rx Instructions .ROUTE .COMPLEX Qty: 90 3RF Dose Instruction: TAKE 1 CAPSULE AT BEDTIME NEEDED FOR INSOMNIA Rx Instructions: TAKE 1 CAPSULE AT BEDTIME NEEDED FOR INSOMNIA losartan 100 mg tablet See Rx Instructions .ROUTE .COMPLEX Qty: 100 3RF Dose Instruction: TAKE 1 TABLET DAILY EVERY EVENING Rx Instructions: TAKE 1 TABLET DAILY EVERY EVENING omega-3 fatty acids 1,000 mg capsule 1,000 mg PO QAM cholecalciferol (vitamin D3) 50 mcg (2,000 unit) capsule 50 mcg PO QAM Patient Comments: WHEN I REMEMBER vitamin B complex Tablet 1 tab PO DAILY milk thistle dandilion See Rx Instructions .ROUTE .COMPLEX Rx Instructions: 1 Daily resveratrol 100 mg capsule 200 mg PO QAM Rx Instructions: 200 mg Daily tumeric 100 mg PO QAM Rx Instructions: 100 mg once daily yellow dock See Rx Instructions .ROUTE .COMPLEX Rx Instructions: 1 X daily doxycycline hyclate 50 mg capsule 50 mg PO .COMPLEX 90 Days Qty: 45 2RF Rx Instructions: 50 mg orally every other day melatonin 5 mg tablet 3 - 10 mg PO HS PRN (Reason: Sleep) Patient Comments: USUALLY EVERY DAY cyanocobalamin (vitamin B-12) [Vitamin B-12] 1,000 mcg Tablet 2,000 mcg PO QAM Patient Comments: SUBLINGUAL , MAYBE 2000 potassium citrate 15 mEq tablet extended release 15 meq PO QAM coenzyme Q10 [Co Q-10] 200 mg Capsule 200 mg PO QAM green tea extract 500 mg Capsule 500 mg PO QAM Discharge Orders: Discharge Order (Routine); Ordered 06/10/25 Ordered By: Fawad Sweeney Admission Data Admit Date/Time: 06/07/25 15:45 Attending Provider: Ricardo Bass Admit Provider: Fawad Sweeney Primary Care Provider: Leonardo Thomson Other Providers: [facility]; Ricardo Bass
== END 2025-06-10 13:29 | disposition home or self-care (01) | DRG 427 ==
LOC: ASU 10:27 → SUATTDRO 15:45 → 3E 15:45